=== PATIENT | female | born 1985 | race Caucasian/White ===

== ENCOUNTER 2023-06-20 10:02 | Outpatient (RCR) | payer OTHER, SELFPAY ==
--- NOTE | ~2023-06-20 | US_ITS ---
EXAMINATION: US OB BPP wo non-stress DATE: 06/20/2023 11:23 INDICATION: Hypertension during third trimester TECHNIQUE: Real-time pelvic ultrasound was performed. The interpreting radiologist was not present fo r the study. COMPARISON: None. FINDINGS: There is a single living fetus in vertex presentation. The placenta is anterior. heart rate is 144 beats per minute (bpm). Biophysical profile performed by the technologist: breathing (30 sec sustained breathing in 30 minutes): 2 out of 2 movement (3 gross body movements in 30 minutes): 2 out of 2 tone (one episode of loznexc-gcsinkvic-koqqpnb limb movement): 2 out of 2 Amniotic fluid pocket (2 cm): 2 out of 2 Total score: 8 out of 8 IMPRESSION: 1. Single living fetus in vertex presentation. 2. Biophysical profile 8 out of 8. Reviewed, dictated and finalized at location A.
[2023-06-20 11:31] VITALS: BP 131/85; PULSE 84
== END 2023-08-02 11:24 | disposition home or self-care (01) ==
LOC: ANHOBOP 10:02
PROVIDERS: Visit Provider Obstetrics & Gynecology
DX: O16.3 Unspecified maternal hypertension, third trimester (principal); Z3A.37 37 weeks gestation of pregnancy
CPT/HCPCS: 59025; 76819

== ENCOUNTER 2023-07-05 05:27 | Inpatient (IN) | payer OTHER, SELFPAY ==
[2023-07-05] VITALS (52 sets, daily range): BP systolic 69–154; BP diastolic 51–91; PULSE 64–99; RESP 14–20; TEMP 36.3–36.8; O2SAT 96–100; BMI 29.5
[2023-07-05 06:14] LABS: Basophils Percent Auto 0.2 % (0.2-1.2); Eosinophils Absolute Auto 0.1 K/mm3 (0-0.3); Eosinophils Percent Auto 1.5 % (0-4.4); Hemoglobin 10.7 g/dL (12.0-15.0); Immature Granulocyte Absolute 0.06 K/mm3 (0.00-0.031); Immature Granulocyte Percent A 0.7 % (0-0.5); Lymphocytes Absolute Auto 1.73 K/mm3 (0.9-3.2); Lymphocytes Percent Auto 20.1 % (18.3-44.2); Mean Corpuscular HGB Conc 32.4 g/dl (32-36); Mean Corpuscular Hemoglobin 29.8 pg (26-34); Mean Corpuscular Volume 91.9 fl (80-100); Mean Platelet Volume 12.6 fl (7.4-10.4); Monocytes Absolute Auto 0.7 K/mm3 (0.1-0.6); Monocytes Percent Auto 8.4 % (2.6-8.5); Neutrophils Percent Auto 69.1 % (45.5-73.1); Platelet Count Result 150 k/mm3 (150-375); Red Blood Count 3.59 M/mm3 (4.2-5.4); Red Cell Distribution Width 12.9 % (11.5-14.5); White Blood Count 8.6 K/mm3 (4.5-10.0)
[2023-07-05] MEDS: LACTATED RINGERS 1,000 ML 125 ML IV CONT ×2 (06:18→07:21)
--- NOTE | 2023-07-05 06:21 | LDADM ---
This patient, Indy Black, was admitted to Labor/Delivery/Recovery 120 on 07/05/23 at 05:27. Plans for labor, pain management and were discussed with patient. Patient/family oriented to hospital policies and general routines including ID bracelet, bed and alarms, visiting hours, pain management, procedures, bathroom and other care routines, personal items, smoking policy, room service/diet and guest tray routines, security routines, and visiting hours. Patient/Family are encouraged to report perceived risks to care and to ask questions if they do not understand what they are told or what they should do. See OBIX for further documentation.
--- NOTE | 2023-07-05 07:06 | WPDANESEPPF ---
Anes - Initial Pre Proc Eval Procedure: Operation Date: 07/05/23 07:30 Proposed Procedures p Repeat Section - Asad Shukla MD Date/Time: 07/05/23 07:06 Surgeon: Asad Shukla MD Pre Op Diagnosis: Repeat C Section Patient Data Age: 37 Gender: F Height: 1.68 m Weight: 83 kg Last Vital Signs Temp 36.6 C 07/05/23 06:16 Pulse 79 07/05/23 07:01 Resp 18 07/05/23 06:16 BP 129/84 07/05/23 07:01 O2 Del Method Room Air 07/05/23 06:20 Allergies Allergy/AdvReac Type Severity Reaction Status Date / Time lorazepam AdvReac Unknown Hallucinati Verified 06/20/23 10:24 ng decongestants AdvReac Unknown Nausea and Uncoded 06/20/23 10:25 Vomiting Home Medications Medication Instructions Recorded Confirmed Type aspirin 81 mg tablet 81 mg PO DAILY 06/15/23 07/05/23 History prenat.vits,yonas,aml-lhdq-sjatt 1 tablet PO DAILY 06/15/23 07/05/23 History Laboratory Tests 07/05/23 05:53 WBC 8.6 K/mm3 (4.5-10.0) RBC 3.59 L M/mm3 (4.2-5.4) Hgb 10.7 L g/dL (12.0-15.0) Hct 33.0 L % (37.0-47.0) MCV 91.9 fl (80-100) MCH 29.8 pg (26-34) MCHC 32.4 g/dl (32-36) RDW 12.9 % (11.5-14.5) Plt Count 150 k/mm3 (150-375) MPV 12.6 H fl (7.4-10.4) Immature Gran % (Auto) 0.7 H % (0-0.5) Neut % (Auto) 69.1 % (45.5-73.1) Lymph % (Auto) 20.1 % (18.3-44.2) [place] % (Auto) 8.4 % (2.6-8.5) Eos % (Auto) 1.5 % (0-4.4) Baso % (Auto) 0.2 % (0.2-1.2) Lymph # (Auto) 1.73 K/mm3 (0.9-3.2) [place] # (Auto) 0.7 H K/mm3 (0.1-0.6) Eos # (Auto) 0.1 K/mm3 (0-0.3) Baso # (Auto) 0.0 K/mm3 (0.0-0.1) Abs Immat Gran (auto) 0.06 H K/mm3 (0.00-0.031) Absolute Neuts (auto) 6.0 K/mm3 (1.3-6.7) Absolute Nucleated RBC 0.0 K/mm3 (0.0-0.012) Nucleated RBC % 0.0 % (0.0-0.2) RPR Pending Blood Type O Positive Antibody Screen Negative Patient hx anesthesia problems: none Family hx anesthesia problems: none Results Review: All pre-operative results and documents have been reviewed as part of the pre-operative evaluation. [facility] Past Medical History Medical History (Updated 07/05/23 @ 07:06 by Lj Larios MD) Obesity Surgical History Surgical History (Updated 07/05/23 @ 07:06 by Lj Larios MD) History of appendectomy History of section Hx of tonsillectomy Family History Family History Other Patient denies significant medical history Social History Social History Smoking status: Former smoker Tobacco type: e-cigarettes/vaping Substance use: never Lack of Transportation: No Lack of Food: Never True Current Housing: I Have Housing Concerned About Future Housing: No Difficulty Paying Gas/Electric Bills: No Difficulty Paying for Meds: No Currently Unemployed: No Education: High School Diploma/GED Difficulty w/ Childcare or Family Care: No Spiritual care concerns: No Anes - Eval Final PreProcedure Day of Procedure 07/05/23 07:06 Patient weight: overweight Heart: regular rate and rhythm Lungs: clear to auscultation Airway: Mallampati scale class II Neurological: alert and oriented Last oral intake: >/= 8 hours ASA classification: II Emergent: no Anesthetic plan: proceed Anesthesia type and monitoring: regional spinal and standard monitoring Results Review: All pre-operative results and documents have been reviewed as part of the pre-operative evaluation. Informed Consent: The patient's anesthetic plan and its attendant risks and benefits were discussed with the patient/family/POA. Questions were solicited and answers provided to the satisfaction of the patient/family/POA.
--- NOTE | 2023-07-05 07:20 | PM.IMHP ---
H&P: HPI History of Present Illness Date/Time: 07/05/23 07:20 Chief Complaint: Term Narrative: 37-year-old multiparous female with previous at term. We have agreed to perform delivery. She understands that there is risk. She understands that injuries may occur. She understands that these injuries may result in hospitalization, more surgery, and severe illness. She understands that there is risk of hemorrhage and infection. She denies any chest pain or shortness of breath. She denies any nausea, vomiting, fever, chills. She denies any contractions or loss of fluid. Review of Systems Review of Systems: All systems reviewed & are unremarkable except as noted in HPI and below Constitutional: Constitutional: Denies chills, Denies fatigue, Denies fever(s) and Denies weakness Eyes: Eyes: Denies blurry vision, Denies change in vision, Denies loss of peripheral vision, Denies loss of vision, Denies other visual disturbances and Denies eye pain ENT: Denies vertigo, Denies dizziness, Denies hearing loss, Denies mouth pain, Denies nasal obstruction, Denies neck mass and Denies neck pain Cardiovascular: Cardiovascular: Denies chest pain, Denies diaphoresis, Denies syncope, Denies leg edema and Denies dyspnea Respiratory: Respiratory: Denies chest congestion, Denies cough, Denies hemoptysis, Denies dyspnea and Denies wheezing Gastrointestinal: Gastrointestinal: Denies abdominal pain, Denies constipation, Denies diarrhea, Denies nausea and Denies vomiting Genitourinary: Genitourinary: Denies hematuria, Denies change in libido, Denies nocturia, Denies genital lesions, Denies flank pain and Denies urinary urgency Musculoskeletal: Musculoskeletal: Denies abnormal gait, Denies back pain, Denies myalgias, Denies arthralgias, Denies joint swelling, Denies muscle weakness and Denies neck pain Integumentary/Breasts: Skin/Breast: Denies swelling, Denies breast pain, Denies breast mass, Denies dry skin, Denies nipple discharge, Denies unusual bruising and Denies jaundice Neurologic: Denies Neuro-related abnormal movements, Denies Abnormal speech present, Denies abnormal gait, Denies behavioral changes, Denies confusion, Denies vertigo, Denies dizziness, Denies syncope, Denies loss of vision, Denies memory loss, Denies convulsions and Denies weakness Psychiatric: Psychiatric: Denies abnormal sleep pattern, Denies behavioral changes, Denies change in libido, Denies confusion, Denies depression, Denies anhedonia and Denies memory loss Endocrine: Endocrine: Reports no additional endocrine complaints, Denies change in libido and Denies fatigue Hematologic/Lymphatic: Hematologic/Lymphatic: Reports no additional hematologic/lymphatic complaints Allergic/Immunologic: Allergic/Immunologic: Reports no additional allergic/immunologic complaints and Denies wheezing PMFSH Past Medical History Medical History (Updated 07/05/23 @ 07:22 by Asad Shukla MD) Obesity Surgical History Surgical History (Updated 07/05/23 @ 07:22 by Asad Shukla MD) History of appendectomy History of section Hx of tonsillectomy Family History Family History Other Patient denies significant medical history Social History Social History Smoking status: Former smoker Tobacco type: e-cigarettes/vaping Substance use: never Lack of Transportation: No Lack of Food: Never True Current Housing: I Have Housing Concerned About Future Housing: No Difficulty Paying Gas/Electric Bills: No Difficulty Paying for Meds: No Currently Unemployed: No Education: High School Diploma/GED Difficulty w/ Childcare or Family Care: No Spiritual care concerns: No Meds Home Medications and Allergies Home Medications Medication Instructions Recorded Confirmed Type aspirin 81 mg tablet 81 mg PO DAILY 06/15/23
[2023-07-05] MEDS: ceFAZolin 2 GM/D5W 50 ML 2 GM/50 ML BAG IVPB (07:27)
--- NOTE | 2023-07-05 08:29 | W.PM.PROC2 ---
Procedure Note - Detailed Date of Procedure 07/05/23 Pre-op Diagnosis Repeat C Section Post-op Diagnosis Same Procedure Performed Low-transverse section Surgeon Asad Shukla MD Anesthesia Spinal Indications previous Findings Normal gestational maternal anatomy, average size , normal Apgars. Description of Procedure The patient was taken the operating room. She was prepped and draped in dorsal supine position with a leftward tilt. This was done after spinal anesthetic was applied. A low-transverse skin incision was made and carried down till of the fascia with the knife. The fascial incision was made with the knife. The fascial incision was extended laterally with Mak scissors. The fascia was tented upward superiorly and inferiorly the rectus muscles were dissected off bluntly. The rectus muscles were the midline. The preperitoneal fat and peritoneum were dissected open bluntly at the superior aspect of the rectus muscles. The peritoneal incision was extended superior and inferior with good position of bladder. The uterine incision was made with a scalpel down to the level of the amniotic cavity. The amniotic cavity was entered bluntly. The was delivered. The cord was clamped and cut and the was handed off to waiting pediatric staff. Cord bloods were obtained. The placenta was removed manually. The uterus was exteriorized. The uterus was cleared of all clots, debris and membranes. The uterus was closed in 0 Vicryl running lock fashion. An imbricating over a was placed along the incision line as well. The uterus was returned to the abdomen. The gutters were cleared of all clots and debris. The fascia was closed with 0 Vicryl running fashion. The subcutaneous tissue was irrigated pinpoint bleeders were cauterized. The skin was closed with subcuticular absorbable norberto. The skin incision line was covered with glue. The patient tolerated the procedure well. She has taken recovery room in stable condition. Sponge lap and needle counts were correct x2. Estimated Blood Loss -365.0 Complications No immediate complications Condition Stable Disposition PACU
[2023-07-05 09:17] LABS: Rapid Plasma Reagin Non-Reactive (NonReactive)
--- NOTE | 2023-07-05 10:37 | OBPPTRN ---
Patient transferred to post room # 288 via bed. Support person present. Oriented to unit, room, information board, rooming in, admission packet and security measures. Patient verbalizes understanding.
--- NOTE | 2023-07-05 10:53 | PC.NURSE ---
Report given to Donavan Maddox RN. Patient transported upstairs on stretcher with and family member.
[2023-07-05] MEDS: DEXTROSE 5%/0.45% SOD CHL 1,000 ML 125 ML IV CONT (11:19)
[2023-07-05] MEDS: HYDROcodone/acetaminophen (*CRX) 10-325 MG TABLET 1 TAB PO ×2 (12:29→16:16)
--- NOTE | 2023-07-05 12:41 | PC.NURSE ---
[id number] Introductions were made, then consulted with patient to assess needs related to . Mother led the conversation with her?plans to feed?her infant, the?experience so far and her lack of any history with her first child. Mother works well with her with encouragement and education. Encouraged understanding of the benefits of skin to skin (demonstrating unwrapping infant and placing upright on her chest), stimulating with massage touch, changing positions to encourage wakefulness, how to watch for early feeding cues, responsive feeding, feeding on demand and infant is less than 6 hours old and may be sleepy. Parents were shown how to encourage and watch infant exploring the chest/breast to map how to get to the milk source. Infant is demonstrating seeking the breast and parents were excited to encourage these instincts. Parents demonstrated learning and was encouraged to call for assistance if infant doesn't self attach by 1330 or if there is pain with latching. Reported to the Primary RN.
[2023-07-05] MEDS: IBUPROFEN 600 MG TABLET PO ×2 (14:09→20:09)
--- NOTE | 2023-07-05 14:49 | PC.NURSE ---
[id number] Purposefully rounded to assess needs. Mother states she breastfed after 12 noon for 30 without pain. She denied pinchy pain and confirmed she watched her infant suck. She voiced she attempted at 1400 and infant slept. Encouraged the parents to place the hwmq-fn-wkat, stimulate and see if will show feeding cues. Parents voiced understanding to call if infant doesn't latch, pain with latching or for a latch assessment to make sure is swallowing. Mother is vxnu-qn-wkvy with her infant upright on her chest while she sits in a chair and father of baby is assisting with stimulating with massage touch and talking to the .
[2023-07-05] MEDS: DOCUSATE SODIUM 100 MG CAPSULE PO (16:17)
[2023-07-05] MEDS: HYDROcodone/acetaminophen (*CRX) 5-325 MG TABLET 1 TAB PO (21:22)
[2023-07-05] MEDS: LANOLIN (LANSINOH) 7.5 GM CREAM 1 APPLIC TOPICAL (23:50)
[2023-07-06 05:33] LABS: Basophils Percent Auto 0.3 % (0.2-1.2); Eosinophils Absolute Auto 0.1 K/mm3 (0-0.3); Eosinophils Percent Auto 1.6 % (0-4.4); Hemoglobin 8.8 g/dL (12.0-15.0); Immature Granulocyte Absolute 0.04 K/mm3 (0.00-0.031); Immature Granulocyte Percent A 0.5 % (0-0.5); Lymphocytes Absolute Auto 1.31 K/mm3 (0.9-3.2); Mean Corpuscular HGB Conc 31.4 g/dl (32-36); Mean Corpuscular Hemoglobin 29.3 pg (26-34); Mean Corpuscular Volume 93.3 fl (80-100); Mean Platelet Volume 11.9 fl (7.4-10.4); Monocytes Absolute Auto 0.7 K/mm3 (0.1-0.6); Monocytes Percent Auto 9.2 % (2.6-8.5); Neutrophils Absolute Auto 5.1 K/mm3 (1.3-6.7); Neutrophils Percent Auto 70.4 % (45.5-73.1); Platelet Count Result 108 k/mm3 (150-375); White Blood Count 7.3 K/mm3 (4.5-10.0)
[2023-07-06 07:50] VITALS: BP 144/90; PULSE 89; RESP 18; TEMP 36.8; O2SAT 97
--- NOTE | 2023-07-06 07:55 | PM.OBPNVD ---
OB - PN: Subj Subjective Date/time seen: 07/06/23 07:55 Interval history: POD#1 doing well, pain well controlled with meds voiding spontaneously bleeding minimal OB - PN: Obj Data Labs 07/06/23 05:11 Labs: Laboratory Results - last 24 hr 07/05/23 07/06/23 05:53 05:11 WBC 7.3 RBC 3.00 L Hgb 8.8 L Hct 28.0 L MCV 93.3 MCH 29.3 MCHC 31.4 L RDW 13.0 Plt Count 108 L MPV 11.9 H Immature Gran % (Auto) 0.5 Neut % (Auto) 70.4 Lymph % (Auto) 18.0 L [place] % (Auto) 9.2 H Eos % (Auto) 1.6 Baso % (Auto) 0.3 Lymph # (Auto) 1.31 [place] # (Auto) 0.7 H Eos # (Auto) 0.1 Baso # (Auto) 0.0 Abs Immat Gran (auto) 0.04 H Absolute Neuts (auto) 5.1 Absolute Nucleated RBC 0.0 Nucleated RBC % 0.0 RPR Non-reactive OB - PN A/P Assessment and Plan (1) Previous delivery, delivered: Code(s): O34.219 - Maternal care for unspecified type scar from previous delivery Status: Acute Plan POD#1, meeting milestones increase ambulation Time Spent With Patient Time: Total time spent is greater than 50% in coordination of care (as documented) at patient's floor/unit and/or counseling patient: Review of Systems Review of Systems: All systems reviewed & are unremarkable except as noted in HPI and below Exam Const: General: comfortable, no acute distress, alert and awake Orientation/consciousness: patient oriented x3 Resp: Effort & Inspection: normal respiratory effort
[2023-07-06] MEDS: DOCUSATE SODIUM 100 MG CAPSULE PO ×2 (09:13→17:15)
[2023-07-06] MEDS: POLYSACCHARIDE IRON COMPLEX 150 MG CAPSULE PO ×2 (09:13→17:15)
[2023-07-06] MEDS: HYDROcodone/acetaminophen (*CRX) 10-325 MG TABLET 1 TAB PO ×4 (09:14→23:50)
[2023-07-06] MEDS: IBUPROFEN 600 MG TABLET PO ×3 (09:14→23:50)
[2023-07-06] MEDS: MULTIVIT/MIN/PREN/FOL AC/IRON TABLET 1 TAB PO (09:14)
[2023-07-06] MEDS: SIMETHICONE 80 MG TAB.CHEW PO ×2 (09:17→13:26)
[2023-07-06 12:20] VITALS: BP 126/77; PULSE 81; RESP 18; TEMP 36.6; O2SAT 97
--- NOTE | 2023-07-06 12:25 | WPDANLDNPN2 ---
Anes-Prog Note L&D-Neuraxial Date/Time: 07/06/23 12:25 Patient feedback: Patient satisfied with post-operative pain management.
--- NOTE | 2023-07-06 12:25 | WPDANLDPN2 ---
Anes-Prog Note L&D Date/Time: 07/06/23 12:25 Neuro status: Neuro function grossly intact. Cardiovascular status: normal Respiratory status: normal Airway patency: baseline Mental status: baseline Post-Op hydration status: normal Vital Signs: Last Vital Signs Temp 36.8 C 07/06/23 07:50 Pulse 89 07/06/23 07:50 Resp 18 07/06/23 07:50 BP 144/90 H 07/06/23 07:50 Pulse Ox 97 07/06/23 07:50 O2 Del Method Room Air 07/05/23 10:00 Pain score (VAS): 0 I/O: Intake & Output 07/05/23 07/06/23 07/06/23 23:59 07:59 15:59 Intake Total 300 Output Total 1075 200 Balance -775 -200 Post-procedural complaints: none Patient feedback: Patient satisfied with anesthetic care.
[2023-07-06 20:00] VITALS: BP 124/78; PULSE 88; RESP 18; TEMP 36.4; O2SAT 97
[2023-07-07] VITALS: BP 145/80
[2023-07-07 04:00] VITALS: BP 132/78
[2023-07-07] MEDS: HYDROcodone/acetaminophen (*CRX) 10-325 MG TABLET 1 TAB PO ×2 (04:02→10:31)
[2023-07-07 08:00] VITALS: BP 155/88; PULSE 83; RESP 16; TEMP 36.6; O2SAT 100
--- NOTE | 2023-07-07 08:44 | PM.OBPNVD ---
OB - PN: Subj Subjective Date/time seen: 07/07/23 08:44 Interval history: POD#2 doing well, pain well controlled with meds voiding spontaneously bleeding minimal desires d/c home today OB - PN: Obj Data Labs 07/06/23 05:11 OB - PN A/P Assessment and Plan (1) Gestational HTN: Code(s): O13.9 - Gestational [-induced] hypertension without significant proteinuria, unspecified trimester Status: Acute Assessment and Plan: f/u 1 week BP check Plan day: 2 Plan: routine care and discharge home Time Spent With Patient Time: Total time spent is greater than 50% in coordination of care (as documented) at patient's floor/unit and/or counseling patient: Review of Systems Review of Systems: All systems reviewed & are unremarkable except as noted in HPI and below Exam Const: General: comfortable, no acute distress, alert and awake Resp: Effort & Inspection: normal respiratory effort GI: GI Palp: Yes Soft to palpation Other: incision c/d/i
--- NOTE | 2023-07-07 08:48 | PM.OBDSVD ---
DS: Admitting Diagnosis Discharge Date 07/07/23 Admitting Diagnosis repeat c section DS: Discharge Diagnosis Discharge Diagnosis (1) Previous delivery, delivered: Code(s): O34.219 - Maternal care for unspecified type scar from previous delivery Status: Acute (2) Gestational HTN: Code(s): O13.9 - Gestational [-induced] hypertension without significant proteinuria, unspecified trimester Status: Acute Assessment and Plan: stable, BP check in 1 week OB - DS: Summary OB Procedures : None OB Procedures Intrapartum: OB Procedures: : None Peripartum Data Procedures: Procedures Operation Date: 07/05/23 07:30 Actual Procedure Side Surgeon p Repeat Section Asad Shukla MD Time Spent with Patient Time attestation: Total time spent providing and/or coordinating discharge services: Exam Const: General: comfortable, no acute distress, alert and awake Resp: Effort & Inspection: normal respiratory effort GI: GI Palp: Yes Soft to palpation Other: incision c/d/i Discharge Plan Discharge Attending physician on discharge: Cristofer Perdomo Discharging Clinician: Cristofer Perdomo Patient Disposition: Home, Self-Care Activity: may shower, may drive after 2 weeks, as tolerated and pelvic rest Diet: as tolerated Patient Instructions: Antibiotic Form, Electronic Cigarettes and Your Health (GEN) Stand Alone Forms: General Discharge Information Follow-up/Referrals: Asad Shukla MD [Physician] - 1 Week (BP and incision check) Discharge Medications: New hydrocodone-acetaminophen 5-325 mg Tablet 1 tablet PO Q3H PRN (Reason: Moderate Pain (4-6)) Qty: 20 0RF Continued #2 Tablet 1 tablet PO DAILY Discontinued Adult Low Dose Aspirin 81 mg Tablet 81 mg PO DAILY Date of admission: 07/05/23 05:27 Primary Care Provider: PHYSICIAN,LINOTYPE MACHINIST APPRENTICE Admitting Provider: Asad Shukla Attending physician on admission: Asad Shukla Condition: Stable
[2023-07-07] MEDS: MULTIVIT/MIN/PREN/FOL AC/IRON TABLET 1 TAB PO (10:31)
[2023-07-07] MEDS: IBUPROFEN 600 MG TABLET PO (10:31)
[2023-07-07] MEDS: DOCUSATE SODIUM 100 MG CAPSULE PO (10:31)
[2023-07-07] MEDS: POLYSACCHARIDE IRON COMPLEX 150 MG CAPSULE PO (10:31)
[2023-07-07] MEDS: TETANUS,DIPHTHERIA,AC PERTUSSIS ADULT (0.5 ML) BOOSTRIX IM (10:39)
[2023-07-07 12:00] VITALS: BP 147/86; PULSE 82
--- NOTE | 2023-07-07 13:18 | PC.NURSE ---
Patient viewed the discharge video Mother & Baby Care, The First Two Weeks . Patient was given the opportunity and encouraged to ask questions. Patient verbalized understanding of information shared and has been given the mother/baby guide for home reference.
[2023-07-09 11:39] VITALS: BP 170/95; PULSE 82; RESP 18; TEMP 36.7; O2SAT 100
== END 2023-07-07 13:55 | disposition home or self-care (01) | DRG 540 ==
LOC: ANHOB2 15:31 → ANHLDR 07-09 11:44 → ANHOB2 07-09 11:44
PROVIDERS: Admitting Provider Obstetrics & Gynecology; Referring Provider Advanced Practice Midwife; Visit Provider Obstetrics & Gynecology
PROC: 10D00Z1 Extraction of Products of Conception, Low, Open Approach (ICD-10-PCS; CPT 59514; principal; 2023-07-05 07:30)
DX: O34.211 Maternal care for low transverse scar from previous cesarean delivery (principal); O13.4 Gestational [pregnancy-induced] hypertension without significant proteinuria, complicating childbirth; Z37.0 Single live birth; Z3A.39 39 weeks gestation of pregnancy
CPT/HCPCS: 36415; 85025; 86592; 86850; 86900; 86901; 90715; A9270; J0690; J1885; J2274; J2371; J2405; J2590; J7120

== ENCOUNTER 2023-07-09 14:30 | Observation (INO) | payer OTHER, SELFPAY ==
[2023-07-09] VITALS (18 sets, daily range): BP systolic 138–180; BP diastolic 77–106; PULSE 73–117; RESP 18; TEMP 36.7; O2SAT 100
[2023-07-09 12:49] LABS: Basophils Percent Auto 0.5 % (0.2-1.2); Eosinophils Absolute Auto 0.2 K/mm3 (0-0.3); Eosinophils Percent Auto 2.8 % (0-4.4); Hematocrit 31.3 % (37.0-47.0); Hemoglobin 9.7 g/dL (12.0-15.0); Immature Granulocyte Absolute 0.03 K/mm3 (0.00-0.031); Immature Granulocyte Percent A 0.5 % (0-0.5); Lymphocytes Absolute Auto 0.93 K/mm3 (0.9-3.2); Lymphocytes Percent Auto 15.3 % (18.3-44.2); Mean Corpuscular Hemoglobin 29.6 pg (26-34); Mean Corpuscular Volume 95.4 fl (80-100); Mean Platelet Volume 11.9 fl (7.4-10.4); Monocytes Absolute Auto 0.5 K/mm3 (0.1-0.6); Monocytes Percent Auto 7.9 % (2.6-8.5); Neutrophils Absolute Auto 4.4 K/mm3 (1.3-6.7); Platelet Count Result 153 k/mm3 (150-375); Red Blood Count 3.28 M/mm3 (4.2-5.4); Red Cell Distribution Width 12.9 % (11.5-14.5); White Blood Count 6.1 K/mm3 (4.5-10.0)
[2023-07-09 13:01] LABS: Alanine Aminotransferase 22 U/L (6-35); Albumin Level 3.3 g/dL (3.5-5.1); Alkaline Phosphatase 138 U/L (38-126); Anion Gap 3 mmol/L (8-16); Aspartate Amino Transferase 36 U/L (14-36); Bilirubin,Total 0.4 mg/dL (0.2-1.3); Blood Urea Nitrogen 11 mg/dL (7-17); Calcium 8.6 mg/dL (8.4-10.2); Carbon Dioxide 30 mmol/L (22-30); Chloride 104 mmol/L (98-107); Estimated Glomerular Filt Rate > 60; Glucose 85 mg/dL (65-110); Potassium 3.9 mmol/L (3.4-5.0); Sodium 137 mmol/L (137-145); Uric Acid 4.5 mg/dL (2.5-7.5)
--- NOTE | 2023-07-09 13:47 | PC.NURSE ---
Dr Perdomo notified of BP's. Orders received.
--- NOTE | 2023-07-09 14:00 | PC.NURSE ---
Plan of care discussed with patient regarding mag sulfate and need for someone to come and care for . Patient very tearful and states that it will be a little bit before she can get some one. Patient declining Mag until childcare aide arrives. risks and benefits of waiting discussed.
[2023-07-09] MEDS: NIFEdipine 10 MG CAPSULE PO (14:20)
[2023-07-09] MEDS: NIFEdipine 30 MG TAB.ER.24 PO (14:20)
--- NOTE | 2023-07-09 14:30 | OBADM ---
This patient, Indy Black, admitted to the OB room OB Post 112 for observation. Patient/family oriented to hospital policies and general routines including ID bracelet, bed and alarms, visiting hours, pain management, procedures, bathroom and other care routines, personal items, smoking policy, room service/diet, and visiting hours. Patient/Family are encouraged to report perceived risks to care and to ask questions if they do not understand what they are told or what they should do.
--- NOTE | 2023-07-09 16:00 | PC.NURSE ---
Checked in on patient, state that she should have early childhood lead teacher coming soon.
--- NOTE | 2023-07-09 16:30 | PC.NURSE ---
Father of the baby here to greens picker the baby. Discussed plan of care again with patient. Patient now agreeable to Mag sulfate.
[2023-07-09] MEDS: LACTATED RINGERS 1,000 ML 75 ML IV CONT (16:58)
[2023-07-09] MEDS: MAGNESIUM SULF 4 GM/WATER100ML 4 GM/100 ML BAG IVPB (16:58)
[2023-07-09] MEDS: IBUPROFEN 600 MG TABLET PO ×2 (16:59→22:35)
--- NOTE | 2023-07-09 17:00 | PC.NURSE ---
Patient with c/o of headache, states she did not have a headache before her procardia.
--- NOTE | 2023-07-09 17:05 | PC.NURSE ---
mag started, BP elevated at this time. Patient very tearful and crying because she misses her baby. Will repeat BP when patient calms down.
[2023-07-09] MEDS: MAGNESIUM SULF 20GM/WATER500ML 500 ML 50 MG IV CONT (17:47)
[2023-07-09] MEDS: ACETAMINOPHEN 500 MG TABLET 1000 MG PO (20:00)
[2023-07-10] VITALS (18 sets, daily range): BP systolic 132–144; BP diastolic 80–87; PULSE 79–100; RESP 16–18; TEMP 36.4–37.1; O2SAT 97–100
[2023-07-10] MEDS: ACETAMINOPHEN/BUTALBITAL/CAFFEINE 325-50-40 MG TABLET (FIORICET) 1 TAB
[2023-07-10] MEDS: MAGNESIUM SULF 20GM/WATER500ML 500 ML 50 MG IV CONT ×2 (03:06→13:14)
[2023-07-10] MEDS: HYDROcodone/acetaminophen (*CRX) 5-325 MG TABLET 1 TAB PO ×2 (03:09→09:15)
[2023-07-10] MEDS: LACTATED RINGERS 1,000 ML 75 ML IV CONT (06:27)
[2023-07-10] MEDS: IBUPROFEN 600 MG TABLET PO ×2 (06:37→13:22)
--- NOTE | 2023-07-10 08:12 | PM.IMHP ---
H&P: HPI History of Present Illness Date/Time: 07/10/23 08:12 Chief Complaint: elevated BP Narrative: Patient presents from OB follow up visit with severe range BP. Denies headache, vision changes, chest pain, dyspnea, RUQ pain or epigastric pain. Previous hx of gHTN, no hx of cHTN. Review of Systems Review of Systems: All systems reviewed & are unremarkable except as noted in HPI and below PMFSH Past Medical History Medical History Obesity Surgical History Surgical History History of appendectomy History of section Hx of tonsillectomy Family History Family History Other Patient denies significant medical history Social History Social History Smoking status: Former smoker Tobacco type: e-cigarettes/vaping Substance use: never Lack of Transportation: No Lack of Food: Never True Current Housing: I Have Housing Concerned About Future Housing: No Difficulty Paying Gas/Electric Bills: No Difficulty Paying for Meds: No Currently Unemployed: No Education: High School Diploma/GED Difficulty w/ Childcare or Family Care: No Spiritual care concerns: No Meds Home Medications and Allergies Home Medications Medication Instructions Recorded Confirmed Type prenat.vits,yonas,gey-wivz-crmaz 1 tablet PO DAILY 06/15/23 07/05/23 History hydrocodone 5 mg-acetaminophen 325 1 tablet PO Q3H PRN Moderate Pain 07/07/23 Rx mg tablet (4-6) #20 tabs Allergies Allergy/AdvReac Type Severity Reaction Status Date / Time lorazepam AdvReac Unknown Hallucinati Verified 06/20/23 10:24 ng decongestants AdvReac Unknown Nausea and Uncoded 06/20/23 10:25 Vomiting Vital Signs Vital Signs - 24 hr 07/09/23 12:07 07/09/23 12:15 07/09/23 12:30 Temperature Pulse Rate 78 79 73 Respiratory Rate Blood Pressure 168/80 H 160/86 H 160/88 H Pulse Oximetry Oxygen Delivery 07/09/23 12:45 07/09/23 13:00 07/09/23 13:15 Temperature Pulse Rate 75 73 75 Respiratory Rate Blood Pressure 156/80 H 161/88 H 152/86 H Pulse Oximetry Oxygen Delivery 07/09/23 13:30 07/09/23 13:45 07/09/23 14:17 Temperature Pulse Rate 81 83 Respiratory Rate Blood Pressure 161/89 H 155/83 H Pulse Oximetry 100 Oxygen Delivery 07/09/23 16:27 07/09/23 17:05 07/09/23 18:00 Temperature Pulse Rate 94 117 H 87 Respiratory Rate Blood Pressure 162/82 H 180/106 H 138/77 Pulse Oximetry Oxygen Delivery 07/09/23 19:45 07/09/23 22:58 07/09/23 23:43 Temperature Pulse Rate 94 93 103 H Respiratory Rate Blood Pressure 144/85 H 140/83 155/83 H Pulse Oximetry Oxygen Delivery 07/09/23 23:45 07/10/23 03:07 07/10/23 06:29 Temperature Pulse Rate 98 93 Respiratory Rate Blood Pressure 138/84 135/83 Pulse Oximetry 97 Oxygen Delivery 07/10/23 06:30 07/10/23 06:31 07/09/23 17:01 Temperature 98.1 F Pulse Rate 96 94 Respiratory Rate Blood Pressure 132/84 139/87 Pulse Oximetry Oxygen Delivery 07/09/23 14:00 07/09/23 20:00 07/10/23 00:00 Temperature 98.0 F 98.6 F Pulse Rate Respiratory Rate 18 18 Blood Pressure Pulse Oximetry Oxygen Delivery Room Air 07/10/23 03:12 07/10/23 06:30 Temperature 98.8 F 98.1 F Pulse Rate Respiratory Rate 18 16 Blood Pressure Pulse Oximetry Oxygen Delivery Exam Const: General: comfortable and no acute distress HENMT: Face/Nose/Sinus: Normal nares present Eyes: General: appearance normal, both eyes and all related structures Neck: Neck: supple Resp: Effort & Inspection: normal respiratory effort Cardio: Rate: regular rate GI: GI Palp: Yes Soft to palpation Skin: General skin exam: normal color and no rashes or lesions noted N
[2023-07-10] MEDS: NIFEdipine 30 MG TAB.ER.24 PO (09:15)
--- NOTE | 2023-07-10 14:44 | PC.NURSE ---
Spoke with Dr. Perdomo. Orders received to stop magnesium sulfate infusion now. Monitor BP for 2 hours. If BP remains stable, patient ok to d/c.
--- NOTE | 2023-07-10 16:57 | PC.NURSE ---
Patient's blood pressures remained WNL for two hours so patient is able to be discharged. Patient agrees with plan of care but must wait on her spouse to come pick her up. Patient remains in OB room until her ride arrives. Patient has discharge instructions to hot die picker [facility] from her pharmacy and to follow up in the office for a BP check on Sunday07/13/23. Patient agrees with plan of care and has no questions at this time.
--- NOTE | 2023-07-20 08:11 | P.PNOB_ITS ---
OB - Triage/Final Diagnosis Visit Information Reason for evaluation: other Comments/Additional reasons for admission: I have assessed the risk for this patient, Indy Black, and determined that she would benefit from observation care. Evaluation Laboratory results: Laboratory Tests 07/09/23 12:34 WBC 6.1 RBC 3.28 L Hgb 9.7 L Hct 31.3 L MCV 95.4 MCH 29.6 MCHC 31.0 L RDW 12.9 Plt Count 153 MPV 11.9 H Immature Gran % (Auto) 0.5 Neut % (Auto) 73.0 Lymph % (Auto) 15.3 L [place] % (Auto) 7.9 Eos % (Auto) 2.8 Baso % (Auto) 0.5 Lymph # (Auto) 0.93 [place] # (Auto) 0.5 Eos # (Auto) 0.2 Baso # (Auto) 0.0 Abs Immat Gran (auto) 0.03 Absolute Neuts (auto) 4.4 Absolute Nucleated RBC 0.0 Nucleated RBC % 0.0 Sodium 137 Potassium 3.9 Chloride 104 Carbon Dioxide 30 Anion Gap 3 L BUN 11 Creatinine 0.40 L Estim Creat Clear Calc Not Reportable Estimated GFR > 60 Glucose 85 Uric Acid 4.5 Calcium 8.6 Total Bilirubin 0.4 AST 36 ALT 22 Alkaline Phosphatase 138 H Total Protein 7.0 Albumin 3.3 L Final Diagnosis (1) Severe preeclampsia: Code(s): O14.10 - Severe pre-eclampsia, unspecified trimester Status: Acute
--- NOTE | 2023-07-23 08:52 | PM.OBTRLD ---
OB - Triage/Final Diagnosis Visit Information Comments/Additional reasons for admission: I have assessed the risk for this patient, Indy Black, and determined that she would benefit from observation care. Evaluation Laboratory results: Laboratory Tests 07/09/23 12:34 WBC 6.1 RBC 3.28 L Hgb 9.7 L Hct 31.3 L MCV 95.4 MCH 29.6 MCHC 31.0 L RDW 12.9 Plt Count 153 MPV 11.9 H Immature Gran % (Auto) 0.5 Neut % (Auto) 73.0 Lymph % (Auto) 15.3 L [place] % (Auto) 7.9 Eos % (Auto) 2.8 Baso % (Auto) 0.5 Lymph # (Auto) 0.93 [place] # (Auto) 0.5 Eos # (Auto) 0.2 Baso # (Auto) 0.0 Abs Immat Gran (auto) 0.03 Absolute Neuts (auto) 4.4 Absolute Nucleated RBC 0.0 Nucleated RBC % 0.0 Sodium 137 Potassium 3.9 Chloride 104 Carbon Dioxide 30 Anion Gap 3 L BUN 11 Creatinine 0.40 L Estim Creat Clear Calc Not Reportable Estimated GFR > 60 Glucose 85 Uric Acid 4.5 Calcium 8.6 Total Bilirubin 0.4 AST 36 ALT 22 Alkaline Phosphatase 138 H Total Protein 7.0 Albumin 3.3 L Final Diagnosis (1) Severe preeclampsia: Code(s): O14.10 - Severe pre-eclampsia, unspecified trimester Status: Acute
== END 2023-07-10 17:49 | disposition home or self-care (01) ==
LOC: ANHOBOP 07-10 00:26 → ANHOBPP 07-10 12:42
PROVIDERS: Obstetrics & Gynecology; Admitting Provider Obstetrics & Gynecology; Visit Provider Obstetrics & Gynecology
DX: O14.10 Severe pre-eclampsia, unspecified trimester (principal); Z3A.00 Weeks of gestation of pregnancy not specified; Z79.891 Long term (current) use of opiate analgesic; Z79.899 Other long term (current) drug therapy; Z87.891 Personal history of nicotine dependence
CPT/HCPCS: 36415; 80053; 84550; 85025; 96365; 96366; A9270; G0378; G0379; J3475; J7120